=== PATIENT | male | born 1995 | race Two or more races ===

== ENCOUNTER 2021-02-15 09:30 | Emergency (ER) | payer OTHER, SELFPAY ==
--- NOTE | ~2021-02-15 | US_ITS ---
EXAMINATION: US scrotum doppler DATE: 02/15/2021 10:15 INDICATION: Right testicular pain TECHNIQUE: Testicular sonogram utilizing grayscale and Doppler COMPARISON: None. FINDINGS: The right testis measures 4.7 x 3.1 x 2.1 cm. The left testis measures 2.3 x 2.3 x 2.2 cm. Bilateral microlithiasis is noted. There is normal vascular flow to both testes. The right epididymis is normal with normal vascular flow. The left epididymis is normal with normal vascular flow. There is no varicocele or hydrocele. IMPRESSION: 1. No sonographic correlate for the patient's symptoms. Reviewed, dictated and finalized at location A.
[2021-02-15 09:34] VITALS: BP 124/74; PULSE 80; RESP 18; TEMP 37; O2SAT 100
--- NOTE | 2021-02-15 09:41 | ED.MALEGU ---
HPI - Male Genitourinary General Chief complaint: Urogenital-Male <Lucy Heller PA-C - Last Filed: 02/15/21 11:08> Stated complaint: sent from urgent care for testicular pain <Lucy Heller PA-C - Last Filed: 02/15/21 11:08> Time Seen by Provider: 02/15/21 09:33 <Lucy Heller PA-C - Last Filed: 02/15/21 11:08> Source: patient <Lucy Heller PA-C - Last Filed: 02/15/21 11:08> Mode of arrival: ambulatory <Lucy Heller PA-C - Last Filed: 02/15/21 11:08> Limitations: no limitations <Lucy Heller PA-C - Last Filed: 02/15/21 11:08> History of Present Illness HPI Narrative: This is a 26 year old male that presents to the ER for right sided testicular pain. Reports it has been ongoing since yesterday. Worse when he is walking around. He was evaluated at urgent care today and sent here. No known injuries. Denies fever, abdominal pain, nausea, vomiting, abnormal rashes or lesions, urethral discharge, dysuria, or hematuria. <Lucy Heller PA-C - Last Filed: 02/15/21 11:08> Related Data Allergies/Adverse reactions: Allergies Allergy/AdvReac Type Severity Reaction Status Date / Time No Known Allergies Allergy Verified 02/15/21 09:49 <Lucy Heller PA-C - Last Filed: 02/15/21 11:08> Review of Systems Review of Systems: CONSTITUTIONAL: Denies fever GASTROINTESTINAL: Denies abdominal pain, nausea, vomiting GENITOURINARY: Denies dysuria or hematuria. SKIN: Denies rash <Lucy Heller PA-C - Last Filed: 02/15/21 11:08> All systems reviewed & are unremarkable except as noted in HPI and below <Lucy Heller PA-C - Last Filed: 02/15/21 11:08> [facility] Past Medical History Medical History: Medical History (Updated 02/15/21 @ 11:08 by Lucy Heller PA-C) No active medical problems <Lucy Heller PA-C - Last Filed: 02/15/21 11:08> Social History Social History: Social History (Updated 02/15/21 @ 09:43 by Lucy Heller PA-C) Smoking status: Never smoker <Lucy Heller PA-C - Last Filed: 02/15/21 11:08> Exam Narrative: GENERAL: Well-appearing, well-nourished, and in no acute distress. HEAD: Normocephalic, atraumatic. EYES: EOMI. CHEST: Clear to auscultation. No respiratory distress. No wheezes rales or rhonchi HEART: Regular rate and rhythm. No murmur heard. Normal peripheral pulses. ABDOMEN: Soft, nontender, nondistended, normal active bowel sounds. EXTREMITIES: Normal range of motion. No edema. SKIN: Warm, dry, no rash. NEURO: No focal deficits. Alert and oriented x3. PSYCH: Normal mood and affect MALE GENITAL: Normal appearing genitalia. No rashes or lesions noted. No urethral discharge. No edema or erythema of the scrotum noted. Mild tenderness to palpation of the right testicle <Lucy Heller PA-C - Last Filed: 02/15/21 11:08> Course Vital Signs Vital signs: Vital Signs Temperature 98.6 F 02/15/21 09:34 Pulse Rate 80 02/15/21 09:34 Respiratory Rate 18 02/15/21 09:34 Blood Pressure 124/74 02/15/21 09:34 Pulse Oximetry 100 02/15/21 09:34 Temperature 98.6 F 02/15/21 09:34 Pulse Rate 88 02/15/21 11:17 Respiratory Rate 21 H 02/15/21 11:17 Blood Pressure 117/73 02/15/21 11:17 Pulse Oximetry 97 02/15/21 11:17 <Lucy Heller PA-C - Last Filed: 02/15/21 11:08> Vital Signs Temperature 98.6 F 02/15/21 09:34 Pulse Rate 80 02/15/21 09:34 Respiratory Rate 18 02/15/21 09:34 Blood Pressure 124/74 02/15/21 09:34 Pulse Oximetry 100 02/15/21 09:34 Temperature 98.6 F 02/15/21 09:34 Pulse Rate 88 02/15/21 11:17 Respiratory Rate 21 H 02/15/21 11:17 Blood Pressure 117/73 02/15/21 11:17 Pulse Oximetry 97 02/15/21 11:17 <Naheed Crowley MD - Last Filed: 02/15/21 15:12> MDM - Male Genitourinary MDM Narrative Medical decision making narrative: Patient presents to the ER for right sided testicular pain noted since yesterday. No
--- NOTE | 2021-02-15 09:55 | PC.NURSE ---
Pt to U/S via stretcher at this time.
[2021-02-15 10:02] LABS: Add Urine Microscopic? YES; Appearance Urine Clear (Clear); Bilirubin Urine Negative (Negative); Blood Urine 1+ (Negative); Color Urine Yellow (Yellow); Glucose Urine UA Negative (Negative); Ketones Urine Negative (Negative); Leukocyte Esterase Ur Negative LEU/UL (Negative); Mucus Urine Rare /lpf; Nitrate Urine Negative (Negative); Protein Urine Negative (Negative); Specific Grav Ur 1.026 (1.001-1.035); WBC Urine 0-3 /hpf
[2021-02-15 11:16] VITALS: BP 117/73; PULSE 88; RESP 21; O2SAT 97
[2021-02-15 11:17] VITALS: BP 117/73; PULSE 88; RESP 21; O2SAT 97
== END 2021-02-15 11:18 | disposition home or self-care (01) ==
PROVIDERS: Physician Assistant; Emergency Provider General Practice
DX: N50.811 Right testicular pain (principal)
CPT/HCPCS: 76870; 81001; 87491; 87591; 87661; 93976; 99283

== ENCOUNTER 2021-07-04 08:25 | Emergency (ER) | payer OTHER, SELFPAY ==
--- NOTE | ~2021-07-04 | XR_ITS ---
XR foot RT min 3V DATE: 07/04/2021 08:48 INDICATION: Right dorsal foot injury, swelling TECHNIQUE: 4 views COMPARISON: None FINDINGS: There is dorsal soft tissue swelling of the foot. No fracture or dislocation, periosteal re action or bone destruction. Joint spaces are preserved. No erosive change. IMPRESSION: Dorsal soft tissue swelling; no bony abnormality Reviewed, dictated and finalized at location B. SEWER
[2021-07-04 08:36] VITALS: BP 109/63; PULSE 81; RESP 16; TEMP 36.6; O2SAT 99
--- NOTE | 2021-07-04 08:49 | ED.GENADULT ---
HPI - General Adult General Chief complaint: Extremity Injury, Lower Stated complaint: rt foot injury Source: patient Mode of arrival: ambulatory Limitations: no limitations History of Present Illness HPI narrative: Patient is a 26-year-old male who presents to the [facility] via POV for evaluation of right foot injury that occurred last night while playing basketball. Patient reports he accidentally fell when a another player landed on top of his right foot. Additionally, he reports pain and swelling. Ibuprofen and sitting provides relief. Movement worsens pain. Related Data Home Medications Medication Instructions Recorded Confirmed No Home Medications 07/04/21 07/04/21 Allergies Allergy/AdvReac Type Severity Reaction Status Date / Time No Known Allergies Allergy Verified 07/04/21 08:31 Review of Systems Review of Systems: Pertinent negatives: fever, chills, sweats, change in appetite, poor p.o. intake, malaise, calf tenderness, skin color changes, rash, warmth, numbness, tingling, loss of sensation, deformity, decreased range of motion, weakness, difficulty with ambulation/coordination, nausea, vomiting, lymphadenopathy, shortness of breath, chest pain, heart palpitations, and heart murmur. [facility] Past Medical History Medical History No active medical problems Social History Social History Smoking status: Never smoker Comments I have reviewed and agree with the patient's past medical, surgical, social, and family hx as documented by the RN. There is no relevant family history pertinent to the presenting complaint. Exam Narrative: GENERAL: Well-appearing, well-nourished, and in no acute distress. HEAD: Normocephalic, atraumatic. NECK: Supple. No Lymphadenopathy or nuchal rigidity appreciated. CHEST: Bilateral lung gerard are clear to auscultation. No respiratory distress. No evidence of cough or pleuritic cp upon examination. HEART: Regular rate and rhythm. No murmur, gallop, or rub heard. EXTREMITIES: Moderate pain and swelling noted to dorsal aspect of right foot. No evidence of injury, decreased ROM, swelling, cyanosis, hematoma, laceration, abrasion, deformity, rash, or puncture. No evidence of pain with active/passive ROM. No evidence of dislocation, ligament laxity, effusion, or pain at rest. Pulses palpable at 2+, strength 5/5, and cap refill < 3 seconds in affected extremity. DTRs normal. Slowed gait. Ambulates with right-sided limp. SKIN: Warm, dry, no rash. NEURO: No focal deficits. Alert and oriented x3. SPECIAL OBSERVATIONS: Smiling. Laughing. Course Vital Signs Vital signs: Vital Signs Temperature 97.9 F 07/04/21 08:36 Pulse Rate 81 07/04/21 08:36 Respiratory Rate 16 07/04/21 08:36 Blood Pressure 109/63 07/04/21 08:36 Pulse Oximetry 99 07/04/21 08:36 Temperature 97.9 F 07/04/21 08:36 Pulse Rate 81 07/04/21 08:36 Respiratory Rate 16 07/04/21 08:36 Blood Pressure 109/63 07/04/21 08:36 Pulse Oximetry 99 07/04/21 08:36 Reviewed Procedures Orthopedic Splinting/Casting Injury #1: Splinting/Casting Date: 07/04/21 Splinting/Casting Time: 09:23 Side: right Lower Extremity Injury Location: foot Lower Extremity Immobilizer: Neeraj wrap Pre-Procedure Neuro Vascular Exam: normal Post-Procedure Neuro Vascular Exam: normal Medical Decision Making Differential Diagnosis Differential Diagnosis: Sprain, strain, cellulitis, open fracture, closed fracture, gout Vital Signs Vital Signs: Vital Signs Temperature 97.9 F 07/04/21 08:36 Pulse Rate 81 07/04/21 08:36 Respiratory Rate 16 07/04/21 08:36 Blood Pressure 109/63 07/04/21 08:36 Pulse Oximetry 99 07/04/21 08:36 Temperature 97.9 F 07/04/21 08:36 Pulse Rate 81 07/04/21 08:36 Respiratory Rate 16 07/04/21 08:36 Blood Pres
== END 2021-07-04 09:10 | disposition home or self-care (01) ==
PROVIDERS: Emergency Provider Nurse Practitioner Family
DX: S93.691A Other sprain of right foot, initial encounter (principal); W50.0XXA Accidental hit or strike by another person, initial encounter; Y93.67 Activity, basketball
CPT/HCPCS: 73630; 99213; G0463

== ENCOUNTER 2021-09-16 13:09 | Emergency (ER) | payer OTHER, SELFPAY ==
[2021-09-16 13:21] VITALS: BP 113/69; PULSE 74; RESP 16; TEMP 36.9; O2SAT 98
--- NOTE | 2021-09-16 14:26 | ED.GENADULT ---
HPI - General Adult General Chief complaint: Urogenital-Male Stated complaint: Groin pain Time Seen by Provider: 09/16/21 14:26 Source: patient Mode of arrival: ambulatory Limitations: no limitations History of Present Illness HPI narrative: Patient presents for evaluation of right-sided testicular pain. Symptom onset last night. He states the pain is a dull aching sensation. He cannot provide me with a numerical rating to the pain. He performed a testicular exam earlier today and felt a bump on the right testicle. He denies any fever, chills, nausea, vomiting, abdominal pain, urinary symptoms, urethral discharge. He had similar symptoms in the past and went to the [place] ER in February 2021 and had an ultrasound that was negative for acute process. STI testing was negative. He is sexually active with females, sometimes using condoms. None of his partners are symptomatic. States he has not been sexually active in several months. No additional complaints or concerns. Related Data Home Medications Medication Instructions Recorded Confirmed No Home Medications 07/04/21 09/16/21 Allergies Allergy/AdvReac Type Severity Reaction Status Date / Time No Known Allergies Allergy Verified 09/16/21 13:20 Review of Systems Review of Systems: CONSTITUTIONAL: Denies fever, chills, or sweats. EYES: Denies visual changes, redness, or discharge. ENT: Denies rhinorrhea, congestion, sore throat, or otalgia. CARDIOVASCULAR: Denies chest pain, palpitations, or edema. RESPIRATORY: Denies cough or dyspnea. GASTROINTESTINAL: Denies abdominal pain, nausea, vomiting, or diarrhea. GENITOURINARY: Reports right sided testicular pain. Denies urethral discharge. Denies urinary frequency, hematuria, dysuria, hesitancy SKIN: Denies rash or itching. MUSCULOSKELETAL: Denies back pain, joint pain, or myalgia. NEUROLOGIC: Denies headache, numbness, dizziness, or weakness. PSYCHIATRIC: Denies anxiety or depression. [facility] Past Medical History Medical History (Updated 09/16/21 @ 14:32 by Harsh Lopez, DANA, JERARDO) No active medical problems Surgical History Surgical History No pertinent past surgical history Family History Family History Mother No pertinent past medical history Social History Social History Smoking status: Never smoker Alcohol intake: never Substance use: never Living arrangements: with family Gender identity (if verbalized by the patient): Male Sexual Orientation (if Verbalized by the Patient): Straight or Heterosexual Spiritual care concerns: No Exam Narrative: GENERAL: Well-appearing, well-nourished, and in no acute distress. HEAD: Normocephalic, atraumatic. EYES: PERRLA and EOMI. ENT: Nares clear, no rhinorrhea or epistaxis. Mucous membranes moist. Oropharynx without tonsillar hypertrophy exudate or other lesions. Bilateral TMs pearly reed nonbulging NECK: Supple. No adenopathy or masses. No carotid bruits or JVD CHEST: Clear to auscultation. No respiratory distress. No wheezes rales or rhonchi HEART: Regular rate and rhythm. No murmur heard. Normal peripheral pulses. ABDOMEN: Soft, nontender, nondistended, normal active bowel sounds. EXTREMITIES: Normal range of motion. No edema. GENITAL: No external genital lesions. There is an approximately 1.5 cm area of hypopigmentation noted to the left side of the scrotum which is slightly pink in color. There is no inguinal lymphadenopathy. No urethral discharge. There is a small area of induration noted to the right testicle SKIN: Warm, dry, no rash. NEURO: No focal deficits. Alert and oriented x3. PSYCH: Normal mood and affect. Course Course Emergency Course: This is a 26-year-old male who presented with complaints of right testicular pain. He had similar symptoms b
--- NOTE | 2021-09-16 15:43 | PC.NURSE ---
1415 after exam by provider, pt will be transferred to ED for further evaluation and treatment.
== END 2021-09-16 14:27 | disposition short-term general hospital (02) ==
PROVIDERS: Emergency Provider Nurse Practitioner
DX: N50.811 Right testicular pain (principal)
CPT/HCPCS: 99212; G0463

== ENCOUNTER 2021-09-16 14:47 | Emergency (ER) | payer OTHER, SELFPAY ==
--- NOTE | ~2021-09-16 | US_ITS ---
US scrotum doppler INDICATION: Right scrotal lump. Intermittent pain. TECHNIQUE: Testicular sonogram utilizing grayscale and color Doppler FINDINGS: The testes are normal in size and appearance. There are scattered calcifications throughout both testes, consistent with microlithiasis. No focal lesions are seen. The right testes measures 4. 5 x 3.2 x 2.2 cm centimeters, and the left testis measures 4 x 2.7 x 2.1 cm cm. There is normal vascu lar flow to both testes. There are bilateral epididymal cysts. Small bilateral hydroceles. IMPRESSION: 1. Small hydroceles. 2: Testicular microlithiasis. 3: Bilateral epididymal cysts, largest in the right epididymis measuring 1 cm (corresponding to the area of palpable concern). Reviewed, dictated and finalized at location A. [facility]
[2021-09-16 14:49] VITALS: BP 145/96; PULSE 75; RESP 16; TEMP 36.2; O2SAT 99
--- NOTE | 2021-09-16 16:22 | ED.MALEGU ---
HPI - Male Genitourinary General Chief complaint: Urogenital-Male Stated complaint: lump in testicle Time Seen by Provider: 09/16/21 15:06 Source: patient History of Present Illness HPI Narrative: Patient presents with lump on his testicle. Reports he noted discomfort yesterday went to sleep no discomfort and then noticed a lump so he came to the ER for evaluation. Reports his pain is resolved but he continues to feel that lump. It is mainly on the right side on top of his testicle. He denies any urinary symptoms denies any lymphadenopathy denies any urethral discharge. Reports has not been sexually active for the past few months. Related Data Home Medications Medication Instructions Recorded Confirmed No Home Medications 07/04/21 09/16/21 Allergies Allergy/AdvReac Type Severity Reaction Status Date / Time No Known Allergies Allergy Verified 09/16/21 13:20 Review of Systems Review of Systems: CONSTITUTIONAL: Denies fever, chills, or sweats. EYES: Denies visual changes, redness, or discharge. ENT: Denies rhinorrhea, congestion, sore throat, or otalgia. CARDIOVASCULAR: Denies chest pain, palpitations, or edema. RESPIRATORY: Denies cough or dyspnea. GASTROINTESTINAL: Denies abdominal pain, nausea, vomiting, or diarrhea. GENITOURINARY: Denies dysuria or hematuria. SKIN: Denies rash or itching. MUSCULOSKELETAL: Denies back pain, joint pain, or myalgia. NEUROLOGIC: Denies headache, numbness, dizziness, or weakness. PSYCHIATRIC: Denies anxiety or depression. All systems reviewed & are unremarkable except as noted in HPI and below PMFSH Past Medical History Medical History No active medical problems Surgical History Surgical History No pertinent past surgical history Family History Family History Mother No pertinent past medical history Social History Social History Smoking status: Never smoker Alcohol intake: never Substance use: never Gender identity (if verbalized by the patient): Male Sexual Orientation (if Verbalized by the Patient): Straight or Heterosexual Spiritual care concerns: No Exam Narrative: GENERAL: Well-appearing, well-nourished, and in no acute distress. HEAD: Normocephalic, atraumatic. EYES: PERRLA and EOMI. ENT: Nares clear, no rhinorrhea or epistaxis. Mucous membranes moist. NECK: Supple. No masses. No JVD ABDOMEN: Soft, nontender, nondistended, normal active bowel sounds. : No ulcerations pustules or lymphadenopathy on external exam. Cremasteric is intact there is normal lie of the testicles there is no focal tenderness on the testicles there is firm small nodule noted in the epididymis EXTREMITIES: Normal range of motion. No edema. SKIN: Warm, dry, no rash. NEURO: No focal deficits. Alert and oriented x3. PSYCH: Normal mood and affect. Course Reevaluation(s) Reevaluation #1: Results and plan reviewed with patient. Patient is comfortable outpatient plan. Date: 09/16/21 Time: 16:14 Vital Signs Vital signs: Vital Signs Temperature 36.2 C L 09/16/21 14:49 Pulse Rate 75 09/16/21 14:49 Respiratory Rate 16 09/16/21 14:49 Blood Pressure 145/96 H 09/16/21 14:49 Pulse Oximetry 99 09/16/21 14:49 Temperature 36.2 C L 09/16/21 14:49 Pulse Rate 75 09/16/21 14:49 Respiratory Rate 16 09/16/21 14:49 Blood Pressure 145/96 H 09/16/21 14:49 Pulse Oximetry 99 09/16/21 14:49 MDM - Male Genitourinary MDM Narrative Medical decision making narrative: H&P as above, vss, pt looks clinically well, exam with small nodule in the epididymis, imaging with epididymal cysts, additional labs/img considered, symptomatic relief available as needed, on reevaluation pt continues to looks clinically well. Suspect abscess, dns torsion, orchitis, ma
== END 2021-09-16 16:50 | disposition home or self-care (01) ==
PROVIDERS: Emergency Provider Emergency Medicine
DX: N50.3 Cyst of epididymis (principal)
CPT/HCPCS: 76870; 93976; 99284